=== PATIENT | female | born 1990 | race Caucasian/White ===

== ENCOUNTER 2020-08-13 10:09 | Emergency (ER) | payer MEDICAID ==
[~2020-08-13] VITALS: Ht 172.7 cm; Wt 99.8 kg
[2020-08-13] MEDS ORDERED: SODIUM BICARBONATE 8.4% INJ 50ML SYRINGE IV ONE ×2 (10:10)
[2020-08-13] MEDS ORDERED: CALCIUM CHLOR(10%) 100MG/ML 10ML SYRINGE IV ONE ×2 (10:10)
[2020-08-13] MEDS ORDERED: EPINEPHrine HCL 1 MG/10 ML SYRG IV ONE ×2 (10:10)
[2020-08-13] MEDS ORDERED: SODIUM BICARBONATE 8.4 % INJ 50ML VIAL IV ONE ×2 (10:23)
[2020-08-13] MEDS ORDERED: EPINEPHrine HCL 1 MG/10 ML SYRG ONE (10:42)
[2020-08-13 10:46] VITALS: BP 0/0
== END 2020-08-13 17:59 ==
LOC: ER 10:09 → EDBD 10:09 → ER 17:59
DX: I46.9 Cardiac arrest, cause unspecified (principal); R41.82 Altered mental status, unspecified
CPT/HCPCS: 92950; 99285; J0171